=== PATIENT | male | born 1965 | race Caucasian/White ===

== ENCOUNTER 2018-04-11 13:06 | Emergency (ER) | payer OTHER ==
[~2018-04-11] VITALS: Ht 175.3 cm; Wt 133.8 kg
[~2018-04-11 13:06] MED LIST: CYCLOBENZAPRINE5 M2 PO; FLEXERIL10 MG PO; NORCO 325 MG-51 TAB PO; NORFLEX100 MG PO; PERCOCET 325 MG1 TA2 PO
[2018-04-11 13:54] LABS: ABSOLUTE BASOPHIL COUNT 0 /CUMM (0.0-0.2); ABSOLUTE EOSINOPHIL COUNT 0.1 /CUMM (0.0-0.7); ABSOLUTE GRANULOCYTE CT 4.8 /CUMM (1.4-6.5); ABSOLUTE MONOCYTE COUNT 0.8 /CUMM (0.10-0.60); BASOPHIL % 0.5 % (0.0-2.0); EOSINOPHIL % 1.3 % (0-5); GRANULOCYTE % 62.4 % (42.2-75.2); HEMATOCRIT 47.1 % (42-52); MEAN CORPUSCULAR HGB 30.3 PG (27.0-31.0); MEAN CORPUSCULAR HGB CONC 34.2 G/DL (33.0-37.0); MEAN CORPUSCULAR VOLUME 88.6 FL (80.0-94.0); MEAN PLATELET VOLUME 8.9 FL (7.4-10.4); PLATELET COUNT 294 /CUMM (130-400); RBC DISTRIBUTION WIDTH 13.2 % (11.5-14.5); RED BLOOD CELL CT 5.32 /CUMM (4.70-6.10); WHITE BLOOD CELL COUNT 7.7 /CUMM (4.8-10.8)
[2018-04-11 14:15] VITALS: BP 148/102
--- NOTE | 2018-04-11 14:20 | RADIOLOGY REPORT ---
EXAMINATION: XR CHEST CLINICAL INFORMATION: Chest pain. COMPARISON: Chest x-ray dated 09/16/2016. TECHNIQUE: 2 views of the chest were obtained on 4 images. FINDINGS: The cardiomediastinal silhouette is borderline enlarged. Lungs bilaterally are symmetrically hyperinflated, consistent with obstructive lung disease. There are bibasilar patchy parenchymal opacities, most consistent with subsegmental atelectasis. No dense consolidation, effusion or pneumothorax is seen. Bony structures are unremarkable. IMPRESSION: Obstructive lung disease with bibasilar subsegmental atelectasis. No focal pneumonia.
== END 2018-04-11 19:26 | disposition admitted as inpatient to this hospital (09) ==
LOC: ERH 13:06
PROVIDERS: Emergency Medicine
DX: R07.9 Chest pain, unspecified (principal)
CPT/HCPCS: 71046; 93005; 93010; 99281